=== PATIENT | male | born 1945 | race Caucasian/White ===

== ENCOUNTER → 2020-06-16 09:27 | Outpatient (BNVA) | payer MEDICARE, SELFPAY | PROVIDERS: PCP Internal Medicine; Referring Provider Internal Medicine; Visit Provider Urology | DX: N40.1 Benign prostatic hyperplasia with lower urinary tract symptoms (principal); N13.8 Other obstructive and reflux uropathy; Z87.442 Personal history of urinary calculi | CPT/HCPCS: Q3014 ==

== ENCOUNTER → 2020-12-06 10:54 | Outpatient (BNVA) | payer MEDICARE, SELFPAY | PROVIDERS: Visit Provider Urology | DX: N40.1 Benign prostatic hyperplasia with lower urinary tract symptoms (principal); N13.8 Other obstructive and reflux uropathy; N20.0 Calculus of kidney | CPT/HCPCS: 51798; 99212 ==

== ENCOUNTER → 2021-06-16 09:31 | Outpatient (BNVA) | payer MEDICARE, SELFPAY | PROVIDERS: PCP Internal Medicine; Visit Provider Urology ==

== ENCOUNTER → 2022-06-15 14:23 | Outpatient (BNVA) | payer MEDICARE, SELFPAY | PROVIDERS: PCP Internal Medicine; Visit Provider Urology | DX: N20.0 Calculus of kidney (principal) | CPT/HCPCS: Q3014 ==

== ENCOUNTER → 2022-10-04 13:01 | Outpatient (BNVA) | payer MEDICARE, BC, SELFPAY | PROVIDERS: PCP Internal Medicine; Visit Provider Nurse Practitioner Family | DX: N40.1 Benign prostatic hyperplasia with lower urinary tract symptoms (principal); N13.8 Other obstructive and reflux uropathy; R35.0 Frequency of micturition; N20.0 Calculus of kidney; R33.9 Retention of urine, unspecified; Z79.82 Long term (current) use of aspirin | CPT/HCPCS: 51798; 99212 ==

== ENCOUNTER → 2022-11-21 10:09 | Outpatient (BNVA) | payer MEDICARE, BC, SELFPAY | PROVIDERS: PCP Internal Medicine; Visit Provider Nurse Practitioner Family | DX: N40.1 Benign prostatic hyperplasia with lower urinary tract symptoms (principal); N13.8 Other obstructive and reflux uropathy; N20.0 Calculus of kidney; R97.20 Elevated prostate specific antigen [PSA] | CPT/HCPCS: 99212 ==

== ENCOUNTER → 2023-06-11 11:46 | Outpatient (BNVA) | payer MEDICARE, BC, SELFPAY | PROVIDERS: PCP Internal Medicine; Visit Provider Nurse Practitioner Family | DX: R97.20 Elevated prostate specific antigen [PSA] (principal); N20.0 Calculus of kidney | CPT/HCPCS: 51798; 81003; 99212 ==

== ENCOUNTER 2023-06-11 12:03 | Outpatient (AMB) | payer MEDICARE, BC, SELFPAY ==
--- NOTE | 2023-06-11 11:56 | A.OFFVIS_ITS ---
Intake Intake Visit Reasons: 6m/PSA/US Intake Note: Patient is present for follow up PSA/Ultrasound (psa 1.5) (imaging 05/31/23) Urology Medications: finasteride (pt stopped x1 week ago) Blood Thinner: aspirin PVR: 80ml's Line Runner Required: No Accompanied by: Self / Same As Patient Allergies No Known Allergies Allergy (Verified 06/11/23 22:05) Medication List - Last Reconciled 06/11/23 by MICHAEL Corona- allopurinol 100 mg PO DAILY aspirin (Adult Low Dose Aspirin) 81 mg PO DAILY blood sugar diagnostic As directed cholecalciferol (vitamin D3) 50 mcg PO DAILY clindamycin phosphate 1% 1 appl topical BID coenzyme Q10 100 mg PO DAILY diphth,pertus(acell),tetanus mL IM finasteride 5 mg PO DAILY 90 days vac 2019 [id number](PF) 60 mcg (15 mcg x 4)/0.5 mL 0.5 mL IM DIRECTED fluoride (sodium) 1.1% dental BID-TID glipizide ER 5 mg PO BID hydrochlorothiazide 25 mg PO DAILY hydrocortisone 2.5% appl topical DAILY indomethacin 50 mg PO TID lancets As directed levothyroxine 125 mcg PO DAILY losartan 50 mg PO DAILY metformin ER 500 mg PO BEDTIME miconazole nitrate 2% topical nystatin-triamcinolone 100,000-0.1 unit/g-% appl topical rosuvastatin 5 mg PO DAILY sodium hyaluronate (viscosup) (Gelsyn-3) mg intra-articular tretinoin 0.05% 1 appl topical BEDTIME triamcinolone acetonide 0.1% appl topical urea 20% appl topical varicella-zoster [id number] (PF) 50 mcg/0.5 mL 0.5 mL IM DIRECTED HPI HPI Comments History of Present Illness Details Matias is a pleasant 77-year-old male patient of .? He presents to the office today for follow-up of his nephrolithiasis and benign prostatic hyperplasia. In discussion with the patient today reports to be doing and feeling well. Recent PSA results reviewed with the patient today as noted karen robertson. Recent renal ultrasound results reviewed with the patient today. Right kidney unremarkable. Left kidney with a 1.2 x 0.9 x 1.1 and echo thin walled cyst. No hydronephrosis noted bilaterally. When asked patient reports compliance with finasteride 5 mg daily. 10/18-- PSA total-- 4.2 PSA % free-- 31 06/20--PSA 1.7 Patient had previously trialed terazosin however experienced dizziness and the medication was discontinued. When asked patient does report previous urinary symptoms of urinary frequency and urgency as well as nocturia up to 3 times per night significantly improved. Discussed obtaining PSA in 6 months for surveillance monitoring and for further assessment evaluation with daily finasteride. When asked patient denies incontinence, hematuria, dysuria, foul smelling urine, changes to urinary stream, flank pain, fever, and or chills. In office urinalysis with glucosuria otherwise within normal limits. [facility] Medical History Thyroid disease Hearing loss Hypothyroidism HTN (hypertension) Hyperlipidemia Prostate nodule Surgical History History of surgery Review of Systems Const All systems reviewed & are unremarkable except as noted in HPI and below Reports no additional complaints Eyes Reports no additional complaints ENT Reports no additional complaints Card Reports no additional complaints Resp Reports no additional complaints GI Reports no additional complaints Reports as per HPI Musc Reports no additional complaints Neuro Reports no additional complaints Psych Reports no additional complaints Endo Reports as per HPI Yefri/Lymph Reports no additional complaints Aller/Immun Reports no additional complaints Physical Exam Const General: cooperative, healthy appearing, comfortable, no acute distress, well developed, alert and awake Orientation/consciousness: patient oriented x3 Limitations: no limitations HEENT Head: Yes normal to inspection, Yes normocephalic and Yes atraumatic Ears: hearing grossly normal bilaterally Eyes General: appearance normal, both eyes and all related structures Neck Neck: Yes normal visual inspection and Yes trachea midline Chest Chest palpation & inspection: normal inspection of the chest Resp Effort & Inspection: normal respiratory effort and able to speak in complete sentences Cardio Rate: regular rate GI Inspection: Yes normal to inspection General: Yes no CVA tenderness Back/Spine/Pelvis Back: no CVA tenderness Skin General skin exam: no rashes or lesions noted Neuro General: patient oriented x3 Extrem General: Yes normal to inspection Psych Appearance: grossly normal and well kempt Mental Status: mental status grossly normal Speech and movement: Normal speech and movement present and Clear speech present Affect: normal affect Attitude: cooperative Thought process: Normal thought process present Thought content: Normal thought content present Insight: Good insight present (Psych) Judgement: Good judgement present (Psych) Office Procedures Post Void Residual Post Residual Void Post Void Residual (PVR): 80 [id number]-[id number] Void Residual by ultrasound Results AMB Urinalysis, Automated UA Leukoctes 0 Jordan/uL Last Edit by [employer] on 06/11/23 12:17 UA Nitrite Negative Last Edit by [employer] on 06/11/23 12:17 UA Urobilinogen 0.2 mg/dL Last Edit by [employer] on 06/11/23 12:17 UA Protein 0 mg/dL Last Edit by [employer] on 06/11/23 12:17 UA pH 6.0 Last Edit by [employer] on 06/11/23 12:17 UA Blood 0 Roman/uL Last Edit by [employer] on 06/11/23 12:17 UA Specific [place] 1.015 Last Edit by [employer] on 06/11/23 12:17 UA Ketone Negative Last Edit by [employer] on 06/11/23 12:17 UA Bilirubin 0 mg/dL Last Edit by [employer] on 06/11/23 12:17 UA Glucose 0 mg/dL Last Edit by [employer] on 06/11/23 12:17 Results Reviewed Results Reviewed: Laboratory Last Values Urine pH (Auto) 6.0 06/11/23 12:16 Specific [place] (Auto) 1.015 06/11/23 12:16 Urine Protein (Auto) 0 mg/dL 06/11/23 12:16 Glucose (UA)(Auto) 0 mg/dL 06/11/23 12:16 Urine Ketones (Auto) Negative 06/11/23 12:16 Urine Blood (Auto) 0 Roman/uL 06/11/23 12:16 Urine Nitrite (Auto) Negative 06/11/23 12:16 Urine Bilirubin (Auto) 0 mg/dL 06/11/23 12:16 Urine Urobilinogen (Auto) 0.2 mg/dL 06/11/23 12:16 Leukocyte Esterase (Auto) 0 Jordan/uL 06/11/23 12:16 Assessment & Plan Assessment & Plan (1) Elevated PSA: Code(s): R97.20 - Elevated prostate specific antigen [PSA] (2) Nephrolithiasis: Code(s): N20.0 - Calculus of kidney Plan In office urinalysis results reviewed with the patient today; as noted above. Recent PSA results reviewed with the patient today; as noted above. Recent renal imaging results reviewed with the patient today; as noted above. Patient denies any bothersome urinary issues or concerns at this time. Patient reports to be happy with current voiding parameters. Continue finasteride 5 mg as discussed and prescribed. Will obtain PSA in 6 months. Follow-up in 6 months with lab to be completed prior; or sooner with any issues, concerns, and or questions. Orders: Orders Prostate Specific Antigen 6 Months R97.20 - Elevated prostate specific antigen [PSA] AMB Urinalysis Automated Today Z13.9 - Encounter for screening, unspecified AMB Post Void Residual by ultrasound Today N13.8 - Other obstructive and reflux uropathy, N40.1 - Benign prostatic hyperplasia with lower urinary tract symptoms Patient Instructions: The patient had an opportunity to ask questions regarding the treatment plan. All questions were answered. Physical exam, labs, and imaging were discussed and reviewed in detail. As well as risks, benefits, and discussion of treatment choices. No major barriers to understanding were identified. The patient expressed understanding and agreement with the above treatment plan. The patient was made aware they should contact our office by phone for worsening of their current condition, the appearance of new symptoms, or with any questions or concerns. Compliance is encouraged with any medications and follow up testing that is ordered. It is a privilege to be allowed the opportunity to participate in? your urological care.? Again, if you have any questions or concerns If you have any questions or concerns please do not hesitate to contact me. The office is [phone]. This note is constructed using voice recognition software. While every effort has been made to ensure accuracy brewery representative errors may have been included. Yours sincerely, DARLENE Corona Coding Level of Care Code Est Pt Level 3 (64143) Diagnoses Elevated PSA R97.20 Nephrolithiasis N20.0 CPT Codes Post Residual Void - PVR CPT Code: 94459-Gfdt Void Residual by ultrasound ([id number])
== END 2023-06-11 14:40 | disposition home or self-care (01) ==
PROVIDERS: PCP Internal Medicine; Visit Provider Nurse Practitioner Family
DX: R97.20 Elevated prostate specific antigen [PSA] (principal); N20.0 Calculus of kidney
CPT/HCPCS: 99213

== ENCOUNTER 2023-12-10 10:32 | Outpatient (AMB) | payer MEDICARE, BC, SELFPAY ==
--- NOTE | 2023-12-10 10:34 | MHC.OFFVIS ---
Intake Visit Reasons: 6 month f/u- PSA Intake Note: Patient is present for follow up PSA PSA: 1.2 Urology Medications: finasteride Blood Thinner: aspirin Strategic Alliances Manager Required: No Accompanied by: Self / Same As Patient Allergies No Known Allergies Allergy (Verified 12/10/23 11:09) Medication List - Last Reconciled 12/10/23 by Fransisca Mckeon [employer]LOOR AUTOMATION MANAGER- allopurinol 100 mg PO DAILY aspirin (Adult Low Dose Aspirin) 81 mg PO DAILY blood sugar diagnostic As directed cholecalciferol (vitamin D3) 50 mcg PO DAILY clindamycin phosphate 1% 1 appl topical BID coenzyme Q10 100 mg PO DAILY diphth,pertus(acell),tetanus mL IM finasteride 5 mg PO DAILY 90 days flu vac 2020 [id number](PF) 60 mcg (15 mcg x 4)/0.5 mL 0.5 mL IM DIRECTED fluoride (sodium) 1.1% dental BID-TID glipizide ER 5 mg PO BID hydrochlorothiazide 25 mg PO DAILY hydrocortisone 2.5% appl topical DAILY indomethacin 50 mg PO TID lancets As directed levothyroxine 125 mcg PO DAILY losartan 50 mg PO DAILY metformin ER 500 mg PO BEDTIME miconazole nitrate 2% topical nystatin-triamcinolone 100,000-0.1 unit/g-% appl topical rosuvastatin 5 mg PO DAILY sodium hyaluronate (viscosup) (Gelsyn-3) mg intra-articular tretinoin 0.05% 1 appl topical BEDTIME triamcinolone acetonide 0.1% appl topical urea 20% appl topical varicella-zoster [id number] (PF) 50 mcg/0.5 mL 0.5 mL IM DIRECTED HPI Comments Details: Matias is a pleasant 78-year-old male patient of .? He has a past medical history of hearing loss, hypertension, hyperlipidemia, and hypothyroidism. He presents to the office today for follow-up of his nephrolithiasis and benign prostatic hyperplasia. In discussion with the patient today reports to be doing and feeling well. He discusses his recent travel to [place] as he has his second home there. Recent PSA results reviewed with the patient today as noted below. 10/18 PSA total-- 4.2 PSA % free 31%, 06/20 PSA 1.7, 11/19 1.2 He currently denies any bothersome urinary issues or concerns. He reports compliance with finasteride 3 times per week as prescribed. He discusses noting a change in his bowel habits as he has been recently experiencing being softer stools however denies nausea, vomiting, and or diarrhea. He thinks this might be related to his change in fluids to mineral water as well as possible glipizide. He otherwise denies urinary urgency, urinary frequency, incontinence, nocturia, hematuria, dysuria, foul smelling urine, changes to urinary stream, flank pain, fever, and or chills. He is happy with his current voiding parameters. In office urinalysis results reviewed with the patient today. Previous workup has included renal ultrasound noting right kidney unremarkable. Left kidney with a 1.2 x 0.9 x 1.1 and echo thin walled cyst. No hydronephrosis noted bilaterally. He otherwise offers no other issues or concerns at this time. [facility] Medical History Thyroid disease Hearing loss Hypothyroidism HTN (hypertension) Hyperlipidemia Prostate nodule Surgical History History of surgery Review of Systems Const Reports no additional complaints Eyes Reports no additional complaints ENT Reports as per HPI Card Reports as per HPI Resp Reports no additional complaints GI Reports as per HPI Reports as per HPI Musc Reports no additional complaints Neuro Reports no additional complaints Psych Reports no additional complaints Endo Reports no additional complaints Yefri/Lymph Reports no additional complaints Aller/Immun Reports no additional complaints Physical Exam Const General: cooperative, healthy appearing, comfortable, no acute distress, well developed, alert and awake Orientation/consciousness: patient oriented x3 Limitations: no limitations HEENT Head: Yes normal to inspection, Yes normocephalic and Yes atraumatic Ears: hearing grossly normal bilaterally Eyes General: appearance normal, both eyes and all related structures Neck Neck: Yes normal visual inspection and Yes trachea midline Chest Chest palpation & inspection: normal inspection of the chest Resp Effort & Inspection: normal respiratory effort and able to speak in complete sentences Cardio Rate: regular rate GI Inspection: Yes normal to inspection General: Yes no CVA tenderness Back/Spine/Pelvis Back: no CVA tenderness Skin General skin exam: no rashes or lesions noted Neuro General: patient oriented x3 Extrem General: Yes normal to inspection Psych Appearance: grossly normal and well kempt Mental Status: mental status grossly normal Speech and movement: Normal speech and movement present and Clear speech present Affect: normal affect Attitude: cooperative Thought process: Normal thought process present Thought content: Normal thought content present Insight: Good insight present (Psych) Judgement: Good judgement present (Psych) Results AMB Urinalysis, Automated UA Leukoctes 0 Jordan/uL Last Edit by [employer] on 12/10/23 10:55 UA Nitrite Negative Last Edit by [employer] on 12/10/23 10:55 UA Urobilinogen 0.2 mg/dL Last Edit by [employer] on 12/10/23 10:55 UA Protein 15 mg/dL Last Edit by [employer] on 12/10/23 10:55 UA pH 5.5 Last Edit by [employer] on 12/10/23 10:55 UA Blood 0 Roman/uL Last Edit by [employer] on 12/10/23 10:55 UA Specific [place] 1.025 Last Edit by [employer] on 12/10/23 10:55 UA Ketone Negative Last Edit by [employer] on 12/10/23 10:55 UA Bilirubin 0 mg/dL Last Edit by [employer] on 12/10/23 10:55 UA Glucose 0 mg/dL Last Edit by [employer] on 12/10/23 10:55 Results Reviewed Results Reviewed: Laboratory Last Values Urine pH (Auto) 5.5 12/10/23 10:46 Specific [place] (Auto) 1.025 12/10/23 10:46 Urine Protein (Auto) 15 mg/dL 12/10/23 10:46 Glucose (UA)(Auto) 0 mg/dL 12/10/23 10:46 Urine Ketones (Auto) Negative 12/10/23 10:46 Urine Blood (Auto) 0 Roman/uL 12/10/23 10:46 Urine Nitrite (Auto) Negative 12/10/23 10:46 Urine Bilirubin (Auto) 0 mg/dL 12/10/23 10:46 Urine Urobilinogen (Auto) 0.2 mg/dL 12/10/23 10:46 Leukocyte Esterase (Auto) 0 Jordan/uL 12/10/23 10:46 Assessment & Plan Assessment & Plan (1) Elevated PSA: Code(s): R97.20 - Elevated prostate specific antigen [PSA] Category: Medical (2) BPH w urinary obs/LUTS: Code(s): N40.1 - Benign prostatic hyperplasia with lower urinary tract symptoms; N13.8 - Other obstructive and reflux uropathy Category: Medical (3) Nephrolithiasis: Code(s): N20.0 - Calculus of kidney Category: Medical (4) Renal cyst: Code(s): N28.1 - Cyst of kidney, acquired Category: Medical Plan In office urinalysis results reviewed with the patient today; as noted above. Recent PSA results reviewed with the patient today; as noted above. Patient currently denies any bothersome urinary issues or concerns. He is happy with his current voiding parameters. Continue finasteride 5 mg 3 times per week as discussed and prescribed. Will obtain renal ultrasound in 1 year for surveillance monitoring of nephrolithiasis and renal cyst Will obtain PSA in 1 year. Follow-up in 1 year with lab to be completed prior; or sooner with any issues, concerns, and or questions. Orders: Orders US renal BI 1 Year N20.0 - Calculus of kidney AMB Urinalysis Automated Today Z13.9 - Encounter for screening, unspecified Prostate Specific Antigen 1 Year R97.20 - Elevated prostate specific antigen [PSA] Patient Instructions: The patient had an opportunity to ask questions regarding the treatment plan. All questions were answered. Physical exam, labs, and imaging were discussed and reviewed in detail. As well as risks, benefits, and discussion of treatment choices. No major barriers to understanding were identified. The patient expressed understanding and agreement with the above treatment plan. The patient was made aware they should contact our office by phone for worsening of their current condition, the appearance of new symptoms, or with any questions or concerns. Compliance is encouraged with any medications and follow up testing that is ordered. It is a privilege to be allowed the opportunity to participate in? your urological care.? Again, if you have any questions or concerns If you have any questions or concerns please do not hesitate to contact me. The office is [phone]. This note is constructed using voice recognition software. While every effort has been made to ensure accuracy health and safety consultant errors may have been included. Yours sincerely, DARLENE Corona Coding Level of Care Code Est Pt Level 3 (03820) Diagnoses Elevated PSA R97.20 BPH w urinary obs/LUTS N40.1; N13.8 Nephrolithiasis N20.0 Renal cyst N28.1
== END 2023-12-10 11:10 | disposition home or self-care (01) ==
PROVIDERS: PCP Internal Medicine; Visit Provider Nurse Practitioner Family
DX: R97.20 Elevated prostate specific antigen [PSA] (principal); N40.1 Benign prostatic hyperplasia with lower urinary tract symptoms; N13.8 Other obstructive and reflux uropathy; N20.0 Calculus of kidney; N28.1 Cyst of kidney, acquired; Z13.9 Encounter for screening, unspecified
CPT/HCPCS: 99213

== ENCOUNTER → 2023-12-10 10:32 | Outpatient (BNVA) | payer MEDICARE, BC, SELFPAY | PROVIDERS: PCP Internal Medicine; Visit Provider Nurse Practitioner Family | DX: R97.20 Elevated prostate specific antigen [PSA] (principal); N40.1 Benign prostatic hyperplasia with lower urinary tract symptoms; N13.8 Other obstructive and reflux uropathy; N20.0 Calculus of kidney; N28.1 Cyst of kidney, acquired; Z79.899 Other long term (current) drug therapy | CPT/HCPCS: 81003; 99212 ==

== ENCOUNTER 2024-11-26 09:33 | Outpatient (AMB) | payer MEDICARE, BC, SELFPAY ==
--- NOTE | 2024-11-26 09:37 | A.OFFVIS_ITS ---
Intake Visit Reasons: 1y/PSA/PVR(set) Intake Note: Patient presents today for follow up on: BPH, nephrolithiasis, renal cyst, elevated psa, ultrasound and lab results Imaging Completed:10/27/24 PSA: 1.09 Urology Medications: finasteride Blood Thinner: aspirin PVR: 0ml's Legal Support Analyst Required: No Accompanied by: Self / Same As Patient Allergies No Known Allergies Allergy (Verified 11/26/24 10:19) Medication List - Last Reconciled 11/26/24 by MICHAEL Corona- allopurinol 100 mg PO DAILY aspirin (Adult Low Dose Aspirin) 81 mg PO DAILY blood sugar diagnostic As directed cholecalciferol (vitamin D3) 50 mcg PO DAILY clindamycin phosphate 1% 1 appl topical BID coenzyme Q10 100 mg PO DAILY diphth,pertus(acell),tetanus mL IM finasteride 5 mg PO DAILY 90 days flu vac 2020 [id number](PF) 60 mcg (15 mcg x 4)/0.5 mL 0.5 mL IM DIRECTED fluoride (sodium) 1.1% dental BID-TID glipizide ER 5 mg PO BID hydrochlorothiazide 25 mg PO DAILY hydrocortisone 2.5% appl topical DAILY indomethacin 50 mg PO TID lancets As directed levothyroxine 125 mcg PO DAILY losartan 50 mg PO DAILY metformin ER 500 mg PO BEDTIME miconazole nitrate 2% topical nystatin-triamcinolone 100,000-0.1 unit/g-% appl topical rosuvastatin 5 mg PO DAILY sodium hyaluronate (viscosup) (Gelsyn-3) mg intra-articular tretinoin 0.05% 1 appl topical BEDTIME triamcinolone acetonide 0.1% appl topical urea 20% appl topical varicella-zoster [id number] (PF) 50 mcg/0.5 mL 0.5 mL IM DIRECTED HPI Comments Details: Matias is a pleasant 79-year-old male patient of .? He has a past medical history of hearing loss, hypertension, hyperlipidemia, and hypothyroidism. He presents to the office today for follow-up of his nephrolithiasis, renal cyst, and benign prostatic hyperplasia. In discussion with the patient today reports to be doing and feeling well. He denies having had any bothersome urinary issues or concerns since his last office visit here approximately 1 year ago. He reports compliance with finasteride 3 times per week. He discusses his upcoming surgical intervention for his left knee replacement with provider through [facility]. Recent PSA results reviewed with the patient today as noted below. 10/18 PSA total 4.2 PSA % free 31%, 06/20 PSA 1.7, 11/19 1.2, 10/20 1.1 Recent renal imaging results reviewed with the patient today 11/20 bilateral kidneys are normal in size and echotexture. No hydronephrosis, solid masses, or calculi seen bilaterally. 1.8 cm cyst in the mid pole of the left kidney. He currently denies any bothersome urinary issues or concerns. He denies urinary urgency, urinary frequency, incontinence, nocturia, hematuria, dysuria, foul smelling urine, changes to urinary stream, flank pain, fever, and or chills. He is happy with his current voiding parameters. In office urinalysis results reviewed with the patient today. He otherwise offers no other issues or concerns at this time. [facility] Medical History Thyroid disease Hearing loss Hypothyroidism HTN (hypertension) Hyperlipidemia Prostate nodule Surgical History History of surgery Review of Systems Const Reports no additional complaints Eyes Reports no additional complaints ENT Reports as per HPI Card Reports as per HPI Resp Reports no additional complaints GI Reports as per HPI Reports as per HPI Musc Reports no additional complaints Neuro Reports no additional complaints Psych Reports no additional complaints Endo Reports no additional complaints Yefri/Lymph Reports no additional complaints Aller/Immun Reports no additional complaints Physical Exam Const General: cooperative, healthy appearing, comfortable, no acute distress, well developed, alert and awake Orientation/consciousness: patient oriented x3 Limitations: no limitations HEENT Head: Yes normal to inspection, Yes normocephalic and Yes atraumatic Ears: hearing grossly normal bilaterally Eyes General: appearance normal, both eyes and all related structures Neck Neck: Yes normal visual inspection and Yes trachea midline Chest Chest palpation & inspection: normal inspection of the chest Resp Effort & Inspection: normal respiratory effort and able to speak in complete sentences Cardio Rate: regular rate GI Inspection: Yes normal to inspection General: Yes no CVA tenderness Back/Spine/Pelvis Back: no CVA tenderness Skin General skin exam: no rashes or lesions noted Neuro General: patient oriented x3 Extrem General: Yes normal to inspection Psych Appearance: grossly normal and well kempt Mental Status: mental status grossly normal Speech and movement: Normal speech and movement present and Clear speech present Affect: normal affect Attitude: cooperative Thought process: Normal thought process present Thought content: Normal thought content present Insight: Good insight present (Psych) Judgement: Good judgement present (Psych) Office Procedures Post Void Residual Post Residual Void Post Void Residual (PVR): 0 [id number] Void Residual by ultrasound Results AMB Urinalysis, Automated UA Leukoctes 0 Jordan/uL Last Edit by [employer] on 11/26/24 09:53 UA Nitrite Last Edit by [employer] on 11/26/24 09:53 UA Urobilinogen 0.2 mg/dL Last Edit by [employer] on 11/26/24 09:53 UA Protein 0 mg/dL Last Edit by [employer] on 11/26/24 09:53 UA pH 5.5 Last Edit by [employer] on 11/26/24 09:53 UA Blood 0 Roman/uL Last Edit by [employer] on 11/26/24 09:53 UA Specific [place] 1.025 Last Edit by [employer] on 11/26/24 09:53 UA Ketone Last Edit by [employer] on 11/26/24 09:53 UA Bilirubin 1 mg/dL Last Edit by [employer] on 11/26/24 09:53 UA Glucose 0 mg/dL Last Edit by [employer] on 11/26/24 09:53 Results Reviewed Results Reviewed: Laboratory Last Values Urine pH (Auto) 5.5 11/26/24 09:45 Specific [place] (Auto) 1.025 11/26/24 09:45 Urine Protein (Auto) 0 mg/dL 11/26/24 09:45 Glucose (UA)(Auto) 0 mg/dL 11/26/24 09:45 Urine Blood (Auto) 0 Roman/uL 11/26/24 09:45 Urine Bilirubin (Auto) 1 mg/dL 11/26/24 09:45 Urine Urobilinogen (Auto) 0.2 mg/dL 11/26/24 09:45 Leukocyte Esterase (Auto) 0 Jordan/uL 11/26/24 09:45 Assessment & Plan Assessment & Plan (1) Renal cyst: Code(s): N28.1 - Cyst of kidney, acquired Category: Medical (2) Elevated PSA: Code(s): R97.20 - Elevated prostate specific antigen [PSA] Category: Medical (3) BPH w urinary obs/LUTS: Code(s): N40.1 - Benign prostatic hyperplasia with lower urinary tract symptoms; N13.8 - Other obstructive and reflux uropathy Category: Medical (4) Nephrolithiasis: Code(s): N20.0 - Calculus of kidney Category: Medical Plan In office urinalysis results reviewed with the patient today; as noted above. PVR 0 mL. Recent PSA results reviewed with the patient today; as noted above. Recent renal imaging results reviewed with the patient today; as noted above. He currently denies any bothersome urinary issues or concerns. He reports be happy with current voiding parameters. Will continue with surveillance monitoring of nephrolithiasis, renal cysts, and PSA. Will obtain renal ultrasound in 1 year. Will obtain PSA in 1 year. Continue finasteride as prescribed. Follow-up in 1 year with PSA, imaging, and PVR; or sooner with any issues, concerns, and or questions. Orders: Orders AMB Post Void Residual by ultrasound Today N13.8 - Other obstructive and reflux uropathy, N40.1 - Benign prostatic hyperplasia with lower urinary tract symptoms Prostate Specific Antigen 1 Year N13.8 - Other obstructive and reflux uropathy, N40.1 - Benign prostatic hyperplasia with lower urinary tract symptoms, R97.20 - Elevated prostate specific antigen [PSA] US renal BI 1 Year N28.1 - Cyst of kidney, acquired AMB Urinalysis Automated Today Z13.9 - Encounter for screening, unspecified Medications: Refilled finasteride 5 mg PO DAILY 90 days 90 tabs 4RF N13.8 - Other obstructive and reflux uropathy, N40.1 - Benign prostatic hyperplasia with lower urinary tract symptoms, R33.9 - Retention of urine, unspecified Coding Level of Care Code Est Pt Level 3 (40415) Complex EM visit Add On G2211 Diagnoses Renal cyst N28.1 Elevated PSA R97.20 BPH w urinary obs/LUTS N40.1; N13.8 Nephrolithiasis N20.0 CPT Codes Post Residual Void - PVR CPT Code: 23520-Imhz Void Residual by ultrasound ([id number])
--- OUTSIDE RECORDS SUMMARY | 2024-11-26 10:28 | XMS_ITS | Clinical Summary ---
Author Organization 175 [facility] Address [address] [place] [address] Phone Care Team Providers Care Credit Products Officer Name Role Phone Nereyda Persaud Primary Care Provider + Allergies No known active allergies Medications glipiZIDE (GLUCOTROL XL) 5 mg 24 hr tablet TAKE 1 TABLET BY MOUTH TWICE DAILY WITH MEALS 180 tablet 1 4 Active losartan (COZAAR) 50 mg tablet TAKE 1 TABLET BY MOUTH DAILY 90 tablet 1 4 Active finasteride (PROSCAR) 5 mg tablet Take 1 tablet (5 mg total) by mouth 3 (three) times a week. Do not crush, chew, or split. Active aspirin 81 mg EC tablet Take 1 tablet (81 mg total) by mouth 1 (one) time each day. Active coenzyme Q-10 50 mg capsule Take 4 capsules (200 mg total) by mouth 3 (three) times a week. Active cholecalciferol (VITAMIN D-3) 50 mcg (2,000 unit) tablet Take 1 tablet (2,000 Units total) by mouth 1 (one) time each day. Active allopurinoL (ZYLOPRIM) 100 mg tablet TAKE 2 TABLETS BY MOUTH DAILY 180 tablet 1 5 Active levothyroxine (SYNTHROID, LEVOTHROID) 125 mcg tablet TAKE 1 TABLET BY MOUTH DAILY 90 tablet 1 5 Active albuterol HFA (ProAir HFA) 90 mcg/actuation inhalerIndicatio ns:Acute bronchitis, unspecified organism Inhale 2 puffs by mouth every 4 (four) hours if needed for wheezing or shortness of breath. 8.5 g 5 08/20/19 26 Active indomethacin (INDOCIN) 50 mg capsule TAKE 1 CAPSULE BY MOUTH THREE TIMES DAILY WITH FOOD NEEDED 90 capsule 1 5 Active rosuvastatin (CRESTOR) 5 mg tablet TAKE 1 TABLET BY MOUTH DAILY 90 tablet 1 5 Active hydroCHLOROthiaz suzi (HYDRODIURIL) 25 mg tablet Take 1 tablet (25 mg total) by mouth 1 (one) time each day. 90 tablet 3 5 Active Active Problems Problem Noted Date Diagnosed Date Primary osteoarthritis of left knee 09/24/2024 Primary osteoarthritis of right knee 09/24/2024 BPH (benign prostatic hyperplasia) 09/24/2024 Gout 12/20/2020 GERD (gastroesophageal reflux disease) 8 Hypothyroidism 04/25/2018 Hyperlipidemia 04/22/2018 Diabetes mellitus type 2, un complicated ([facility] V24, [facility] V28) 04/14/2018 Hypertension 09/03/2017 Nephrolithiasis 03/23/2016 Fatty liver 07/27/2015 Overview (09/24/2024): Comments: Diagnosed by ultrasound november 2010. saw Dr Lopez, asked to lose weight Encounters Date Type Department Care Team Description 11/18/2024 11:00 AM EDT Consult Orthopedic Surgery [facility] [address] [phone] Cesilia Qureshi NP Primary osteoarthritis of left knee (Primary Dx); Pre-op evaluation 11/18/2024 Telephone Orthopedic Surgery [facility] [address] [phone] Wanda Hendrix, YULY PT Initial Eval 11/06/2024 3:30 PM EDT Consult Internal Medicine [facility] 175 [facility] [address] [place] [phone] Nereyda Persaud PA Preop examination (Primary Dx) 11/02/2024 Telephone Orthopedic Surgery [facility] [address] [phone] Wanda Hendrix RN PREOP REVIEW 10/27/2024 1:08 PM EDT - 10/27/2024 11:59 PM EDT Hospital Encounter [facility] - [facility] [address] [place] [phone] Calculus of kidney Discharge Disposition: Home or Self Care 10/27/2024 11:00 AM EDT Office Visit Internal Medicine [facility] 175 [facility] [address] [place] [phone] Nereyda Persaud PA Type 2 diabetes mellitus without complication, without long-term current use of insulin ([facility] V24, [facility] V28) (Primary Dx); Primary hypertension; Pure hypercholesterolemia; Hypothyroidism, unspecified type; Chronic gout of multiple sites, unspecified cause; Benign prostatic hyperplasia, unspecified whether lower urinary tract symptoms present; Obesity (BMI 30.0-34.9); Arthritis of knee 09/30/2024 Telephone Orthopedic Surgery [place] [address] [phone] Annamaria Johnson MA Surgery 09/24/2024 2:30 PM EST Office Visit Orthopedic Surgery [facility] [address] [place] [phone] Nemesio Cuevas MD Primary osteoarthritis of left knee (Primary Dx); Primary osteoarthritis of right knee; Primary osteoarthritis of left knee from Last 3 Months Surgical History Surgery Date Site/Laterality Comments COLONOSCOPY PROCEDURE: HISTORICAL COLONOSCOPY; COMMENT: x 3 OTHER SURGICAL HISTORY PROCEDURE: IN CURTG/CAUT ANAL FISSURE W/DILAT SPHNCTR SPX 1ST; COMMENT: fissurectomy OTHER SURGICAL HISTORY PROCEDURE: HISTORICAL CLEFT LIP/PALATE REPAIR; COMMENT: hx cleft palate OTHER SURGICAL HISTORY PROCEDURE: IN COLECTOMY PRTL W/COLOST/ILEOST & MUCOFISTULA; COMMENT: partial colectomy UPPER GASTROINTESTINAL ENDOSCOPY PROCEDURE: IN UPPER GI ENDOSCOPY PERFORMED Medical History Medical History Date Comments Diabetes mellitus type 2, uncomplicated ([facility] V24, [facility] V28) 04/14/2018 DX:Diabetes mellitus type 2, uncomplicated (HCC) Fatty liver 07/27/2015 DX:Fatty liver; COMMENT: Comments: Diagnosed by ultrasound november 2010. saw Dr Lopez, asked to lose weight GERD (gastroesophageal reflu x disease) 04/25/2018 DX:GERD (gastroesophageal re flux disease) Hyperlipidemia 04/22/2018 DX:Hyperlipidemi a Hypertension 09/03/2017 DX:Hypertension Hypothyroidism 04/25/2018 DX:Hypothyroidis m Nephrolithiasis 03/23/2016 DX:Nephrolithias is Arthritis of carpometacarpal (CMC) joint of right thumb DX:Arthritis of carpometacar pal (CMC) joint of right thumb History of COVID-19 08/02/2020 DX:History o f COVID-19; COMMENT: 08/02/20 and 06/2021 Gout DX:Gout Obesity (BMI 30.0-34.9) DX:Obesi ty (BMI 30.0-34.9) Cleft palate OA (osteoarthritis) Family History Medical History Relation Name Comments COPD Father Dementia Mother Relation Name Status Comments Father (Age 84) Mother (Age 84) Social History Tobacco Use Types Packs/Day Years Used Date Smoking Tobacco: Former Cigarettes Q uit: 07/29/1988 Smokeless Tobacco: Never Alcohol Use Standard Drinks/Week Comments No 0 (1 standard drink = 0.6 oz pur e alcohol) Housing Instability Answer Date Recorde d Are you worried that in the next 2 months you may not have stable housing? No 10/20/2024 Food Access & Nutrition Answer Date Rec orded Do you have access to a vari ety of food including fruits and vegetables? Yes 10/20/2024 Access to Healthcare Answer Date Record ed Within the last 3 months, ho w many times did you visit the emergency department for your medical care? 0 10/20/2024 Health Literacy Answer Date Recorded How often do you need to hav e someone help you when you read instructions, pamphlets, or other written material from your doctor or pharmacy? Never 10/20/2024 Caregiver: How often do you need to have someone help you when you read instructions, pamphlets, or other written material from your doctor or pharmacy? Not on file 10/20/2024 Financial Risk Answer Date Recorded How hard is it for you to pa y for the very basics like food, housing, medical care, and air conditioning / heating? Not very hard 10/20/2024 Transportation Answer Date Recorded Has the lack of transportati on kept you from meetings, work, or from getting things needed for daily living? No Has the lack of transportati on kept you from medical appointments or from getting medications? No 10/20/2024 Social Isolation Answer Date Recorded How often do you feel lonely or isolated from th ose around you? Never 10/20/2024 Food Risk Answer Date Recorded Within the past 12 months we worried whether our food would run out before we got money to buy more. Never true 10/20/2024 Within the past 12 months th e food we bought just didn't last and we didn't have money to get more. Never true 10/20/2024 Dependent Care Answer Date Recorded Do you need help finding or paying for care for your loved ones. For example, child attendant or elderly care for an older adult? No 10/20/2024 Education Answer Date Recorded Do you think completing more education or training, like finishing a GED, going to college, or learning a trade, would be helpful for you? No 10/20/2024 Employment and Income Answer Date Recor ded During the last four weeks, have you been actively looking for work? Yes 10/20/2024 Living Situation Answer Date Recorded What is your living situation? 0 10/20/2024 Sex and Gender Information Value Date Recorded Sex Assigned at Not on file Legal Sex Male 12:45 PM EST Gender Identity Not on file Sexual Orientation Not on file Obstetrics History Last Filed Vital Signs Vital Sign Reading Time Taken Comments Blood Pressure 138/84 11/18/2024 10:43 AM EDT Pulse 86 11/18/2024 10:43 AM EDT Temperature 36.4 ??C (97.5 ??F) 11/18/2024 10:43 AM E DT Respiratory Rate - - Oxygen Saturation 96% 11/18/2024 10:43 AM EDT Inhaled Oxygen Concentration - - Weight 95.3 kg (210 lb) 11/18/2024 10:43 AM EDT Height 175.3 cm (5' 9 ) 11/18/2024 10:43 AM EDT Body Mass Index 31.01 11/18/2024 10:43 AM EDT Plan of Treatment Upcoming Encounters Date Type Department Care Team (Latest Contact Info) Description 12/01/2024 10:00 AM EDT Hospital Encounter [facility] Main OR [address] [place] [phone] Nemesio Cuevas MD [address] [address] 12/01/2024 10:00 AM EDT - 12/01/2024 12:30 PM EDT Surgery [facility] Main OR [address] [place] [phone] Nemesio Cuevas MD [address] [address] LEFT TOTAL KNEE ARTHROPLASTY [46470 (CPT??)] 12/16/2024 1:30 PM EDT Office Visit Orthopedic Surgery - [place] [address] [phone] Nemesio Cuevas MD [address] [address] 05/12/2025 11:00 AM EDT Office Visit Internal Medicine - [address] [phone] Nereyda Persaud PA [address] [phone] Scheduled Procedures Name Priority Associated Diagnoses Date/Ti me ARTHROPLASTY KNEE TOTAL Primary osteoarthritis of left knee 12/01/2024 10:00 AM EDT Health Maintenance Due Date Last Done Comments Diabetes: Annual Foot Exam 1957 Diabetes: Annual Retina Eye Exam 1955 Zoster Vaccines (2 of 2) 05/27/2020 04/01/2020, 12/28 Hepatitis C Screening 07/07/2022 Medicare Annual Wellness Visit 07/07/2022 Diabetes: Annual Urine Albumin-Creatinine Ratio (uACR) 07/08/2022 DTaP,Tdap,and Td Vaccines (2 - Td or Tdap) 10/14/2022 10/14/2012 COVID-19 Vaccine ( season) 2024 04/19/2022, 11/28/2021, 05/26/2021, Additional history exists Influenza Vaccine (Season Ended) 2025 06/17/2023, 05/02/2022, 04/28/2021, Additional history exists Diabetes: Blood Sugar Control Test (HGBA1C) 05/19/2025 11/17/2024, 04/17/2024 Depression Screening 10/20/2025 10/20/2024 Social Influencers of Health Screening 10/20/2025 10/20/2024 Falls Risk Assessment 10/27/2025 10/27/2024 Diabetes: Annual GFR (Glomerular Filtration Rate) 11/17/2025 11/17/2024, 04/17/2024 Hypertension/CHF/CAD Annual BMP Blood Test 11/17/2025 11/17/2024, 04/17/2024 Cholesterol Screening (Lipid Panel) 11/17/2029 11/17/2024, 04/17/2024 Pneumococcal Vaccine: 50+ Years Completed 03/11/2015, 06/30/2012 RSV Immunization Adult Patients Completed 05/27/2024 HIB Vaccines Aged Out No longer eligi ble based on patient's age to complete this topic HPV Vaccines Aged Out No longer eligi ble based on patient's age to complete this topic Hepatitis A Vaccines Aged Out No long er eligible based on patient's age to complete this topic Hepatitis B Vaccines Aged Out No long er eligible based on patient's age to complete this topic IPV Vaccines Aged Out No longer eligi ble based on patient's age to complete this topic MMR Vaccines Aged Out No longer eligi ble based on patient's age to complete this topic Meningococcal ACWY Vaccine Aged Out N o longer eligible based on patient's age to complete this topic Meningococcal B Vaccine Aged Out No l onger eligible based on patient's age to complete this topic RSV Immunization Patients Under 20 months Aged Out No longer eligible based on patient's age to complete this topic Varicella Vaccines Aged Out No longer eligible based on patient's age to complete this topic Procedures Procedure Name Priority Date/Time Associated Diagnosis Comments MRSA PCR Routine 11/18/2024 12:12 PM EDT Primary osteoarthritis of left knee Pre-op evaluation CBC WITH AUTO DIFFERENTIAL Routine 11/17/2024 11:42 AM EDT Type 2 diabetes mellitus without complication, without long-term current use of insulin ([facility] V24, [facility] V28) COMPREHENSIVE METABOLIC PANEL Routine 11/17/2024 11:42 AM EDT Type 2 diabetes mellitus without complication, without long-term current use of insulin ([facility] V24, [facility] V28) Primary hypertension Pure hypercholesterolemia CBC AND DIFFERENTIAL Routine 11/17/2024 11:42 AM EDT Type 2 diabetes mellitus without complication, without long-term current use of insulin ([facility] V24, [facility] V28) LIPID PANEL WITH REFLEX TO DIRECT LDL Routine 11/17/2024 11:42 AM EDT Pure hypercholesterolemia HEMOGLOBIN A1C Routine 11/17/2024 11:42 AM EDT Type 2 diabetes mellitus without complication, without long-term current use of insulin ([facility] V24, [facility] V28) THYROID STIMULATING HORMONE Routine 11/17/2024 11:42 AM EDT Hypothyroidism, unspecified type URIC ACID Routine 11/17/2024 11:42 AM EDT Chronic gout of multiple sites, unspecified cause ECG INTERPRETATION AND REPORT ONLY Routine 11/06/2024 4:21 PM EDT Preop examination US RETROPERITONEAL LIMITED Routine 10/27/2024 1:42 PM EDT Calculus of kidney PROSTATE SPECIFIC ANTIGEN SCREEN Routine 10/12/2024 12:01 PM EDT Elevated prostate specific antigen (PSA) from Last 3 Months Results * MRSA molecular study (11/18/2024 12:12 PM EDT) MRSA Screen PCR Not Detected Not Detected LAB MICROBIOLOGY METHOD 11/18/2024 8:13 PM EDT [facility] Swab Both anterior nares / Unknown Non-blood Collection / Unknown 11/18/2024 12:12 PM EDT 11/18/2024 12:12 PM EDT us Cesilia Qureshi NP LAB MICROBIOLOGY - GENE RAL ORDERABLES Final Result Performing Organization Address City/[facility]/ZIP Co de Phone Number [facility] [address] [place] [address], [place] [phone] * Lipid panel with reflex to direct LDL (11/17/2024 11:42 AM EDT) Cholesterol 177 0 - 200 mg/dL LAB CHEMISTRY METHOD 11/17/2024 3:50 PM EDT [facility] Triglycerides 146 0 - 150 mg/dL LAB CHEMISTRY METHOD 11/17/2024 3:50 PM EDT [facility] HDL 49 >=40 mg/dL LAB CHEMISTRY METHOD 11/17/2024 3:50 PM EDT [facility] LDL Calculated 99 0 - 100 mg/dL LAB CHEMISTRY METHOD 11/17/2024 3:50 PM EDT [facility] VLDL Cholesterol Dexter 29.2 mg/dL LAB CHEMISTRY METHOD 11/17/2024 3:50 PM EDT [facility] Non HDL Chol. (LDL+VLDL) 128 <145 mg/dL LAB CHEMISTRY METHOD 11/17/2024 3:50 PM EDT [facility] Chol/HDL Ratio 3.6 0.0 - 4.4 LAB CHEMISTRY METHOD 11/17/2024 3:50 PM EDT [facility] Blood Venous blood specimen / Unknown Venipuncture / Unknown 11/17/2024 11:42 AM EDT 11/17/2024 11:42 AM EDT us Nereyda FREIRE LAB BLOOD ORDERABLES Fin al Result [facility] [address] [place] [address], * (ABNORMAL) CBC auto differential (11/17/2024 11:42 AM EDT) [facility] Signature WBC 9.9 4.8 - 10.8 K/mcL LAB HEMETOLOGY METHOD 11/17/2024 3:02 PM EDT [facility] RBC 5.10 4.50 - 5.50 M/mcL LAB HEMETOLOGY METHOD 11/17/2024 3:02 PM EDT [facility] Hemoglobin 15.6 13.5 - 17.5 g/dL LAB HEMETOLOGY METHOD 11/17/2024 3:02 PM EDT [facility] Hematocrit 45.6 42.0 - 54.0 % LAB HEMETOLOGY [facility] MCV 89.8 79.0 - 98.0 FL LAB HEMETOLOGY METHOD [facility]/17[facility]2024 [facility] MCH 30.7 27.0 - 32.0 pcg LAB HEMETOLOGY METHOD 11/17[facility]24 [facility] MCHC 34.2 32.0 - 37.0 g/dL LAB HEMETOLOGY METHOD 11/17/2024 3:02 PM EDT [facility] RDW 13.3 11.0 - 15.0 % LAB HEMETOLOGY METHOD 11/17[facility]2024 [facility] Platelets 220 130 - 400 K/mcL LAB HEMETOLOGY METHOD 11/17/2024 [facility] MPV 11.9(H) 7.0 - 11.0 FL LAB HEMETOLOGY METHOD [facility]/17[facility]2024 [facility] NRBC 0.0 <1.0 % LAB HEMETOLOGY METHOD 11/17/2024 3:02 PM [facility] NRBC Absolute 0.00 <0.10 K/mcL LAB HEMETOLOGY METHOD 11/17/2024 3:02 PM [facility] Neutrophils Relative 71.9 % LAB HEMETOLOGY METHOD 11/17/2024 3:02 PM [facility] Lymphocytes Relative 13.8 % LAB HEMETOLOGY METHOD 11/17/2024 3:02 PM [facility] Monocytes Relative 8.0 % LAB HEMETOLOGY METHOD 11/17/2024 3:02 PM [facility] Eosinophils Relative 4.1 % LAB HEMETOLOGY METHOD 11/17/2024 3:02 PM [facility] Basophils Relative 1.3 % LAB HEMETOLOGY METHOD 11/17/2024 3:02 PM [facility] Immature Granulocytes Relative 0.9 % LAB HEMETOLOGY METHOD 11/17/2024 3:02 PM [facility] Neutrophils Absolute 7.13(H) 1.50 - 7.00 K/mcL LAB HEMETOLOGY METHOD 11/17/2024 3:02 PM [facility] Lymphocytes Absolute 1.37 1.00 - 5.00 K/mcL LAB HEMETOLOGY METHOD 11/17/2024 3:02 PM [facility] Monocytes Absolute 0.79 0.20 - 1.00 K/mcL LAB HEMETOLOGY METHOD 11/17/2024 3:02 PM [facility] Eosinophils Absolute 0.41 0.00 - 0.50 K/mcL LAB HEMETOLOGY METHOD 11/17/2024 3:02 PM [facility] Basophils Absolute 0.13 0.00 - 0.20 K/mcL LAB HEMETOLOGY METHOD 11/17/2024 3:02 PM [facility] Immature Granulocytes Absolute 0.09(H) 0.00 - 0.03 K/mcL LAB HEMETOLOGY METHOD 11/17/2024 3:02 PM EDT [facility] Blood Venous blood specimen / Unknown Venipuncture / Unknown 11/17/2024 11:42 AM EDT 11/17/2024 11:42 AM EDT Nereyda FREIRE LAB BLOOD ORDERABLES Fin al Result Performing Organization Address [facility] Co de Phone Number [facility] [address] [place] [address], [place] [phone] * Uric acid (11/17/2024 11:42 AM EDT) Uric Acid 7.3 3.7 - 9.2 mg/dL LAB CHEMISTRY METHOD 11/17/2024 3:50 PM EDT [facility] Blood Venous blood specimen / Unknown Venipuncture / Unknown 11/17/2024 11:42 AM EDT 11/17/2024 11:42 AM EDT us Nereyda FREIRE LAB BLOOD ORDERABLES Fin al Result Performing Organization Address [facility] Co de Phone Number [facility] [address] [place] [address], [place] [phone] * Thyroid stimulating hormone (11/17/2024 11:42 AM EDT) TSH 0.98 0.40 - 4.00 mcIU/mL LAB CHEMISTRY METHOD 11/17/2024 5:08 PM EDT [facility] Blood Venous blood specimen / Unknown Venipuncture / Unknown 11/17/2024 11:42 AM EDT 11/17/2024 11:42 AM EDT us Nereyda FREIRE LAB BLOOD ORDERABLES Fin al Result Performing Organization Address [facility]/ZIP Co de Phone Number [facility] [address] [place] [address], * (ABNORMAL) Hemoglobin A1c (11/17/2024 11:42 AM EDT) Hemoglobin A1C 7.6(H) <6.5 % LAB CHEMISTRY METHOD 11/17/2024 10:41 PM EDT [facility] Mean Bld Glu Estim. 171 mg/dL LAB CHEMISTRY METHOD 11/17/2024 10:41 PM EDT [facility] Blood Venous blood specimen / Unknown Venipuncture / Unknown 11/17/2024 11:42 AM EDT 11/17/2024 11:42 AM EDT Nereyda FREIRE LAB BLOOD ORDERABLES Fin al Result Performing Organization Address [facility]/ZIP Co de Phone Number [facility] [address] [place] [address], [place] [phone] * (ABNORMAL) Comprehensive metabolic panel (11/17/2024 11:42 AM EDT) [facility] Sodium 140 133 - 145 mmol/L LAB CHEMISTRY METHOD 11/17/2024 3:50 PM EDT [facility] Potassium 4.3 3.5 - 5.5 mmol/L LAB CHEMISTRY METHOD 11/17/2024 3:50 PM EDT [facility] Chloride 103 96 - 110 mmol/L LAB CHEMISTRY METHOD 11/17/2024 3:50 PM EDT [facility] CO2 28 21 - 32 mmol/L LAB CHEMISTRY METHOD 11/17/2024 3:50 PM EDT [facility] Anion Gap 9 3 - 11 LAB CHEMISTRY METHOD 11/17/2024 3:50 PM EDT [facility] Glucose 153(H) 70 - 100 mg/dL LAB CHEMISTRY METHOD 11/17/2024 3:50 PM [facility] BUN 18 5 - 25 mg/dL LAB CHEMISTRY METHOD 11/17/2024 3:50 PM [facility] Creatinine 0.88 0.70 - 1.30 mg/dL LAB CHEMISTRY METHOD 11/17/2024 3:50 PM [facility] eGFR 89 >=60 mL/min/1. 73m2 LAB CHEMISTRY METHOD 11/17/2024 3:50 PM [facility] Comment:Calculation based on the??Chronic Kidney Disease Epidemiology Collaboration (CKD-EPI) equation refit??without adjustment for race. BUN/Creatinine Ratio 20.5 LAB CHEMISTRY METHOD 11/17/2024 3:50 PM [facility] Calcium 9.5 8.5 - 10.5 mg/dL LAB CHEMISTRY METHOD 11/17/2024 3:50 PM [facility] AST (SGOT) 22 10 - 42 unit/L LAB CHEMISTRY METHOD 11/17/2024 3:50 PM [facility] ALT (SGPT) 30 10 - 60 unit/L LAB CHEMISTRY METHOD 11/17/2024 3:50 PM [facility] Alkaline Phosphatase 60 42 - 121 unit/L LAB CHEMISTRY METHOD 11/17/2024 3:50 PM [facility] Total Protein 6.8 6.0 - 8.0 g/dL LAB CHEMISTRY METHOD 11/17/2024 3:50 PM [facility] Albumin 4.0 3.2 - 5.0 g/dL LAB CHEMISTRY METHOD 11/17/2024 3:50 PM [facility] Total Bilirubin 0.9 0.0 - 1.4 mg/dL LAB CHEMISTRY METHOD 11/17/2024 3:50 PM [facility] Blood Venous blood specimen / Unknown Venipuncture / Unknown 11/17/2024 11:42 AM EDT 11/17/2024 11:42 AM EDT us Nereyda FREIRE LAB BLOOD ORDERABLES Fin al Result [facility] [address] [place] [address], [place] [phone] * ECG Interpretation and Report Only (11/06/2024 4:21 PM EDT) Narrative Nereyda Persaud PA - 11/06/2024 4:21 PM EDT Sinus rhythm no ST changes us Nreeyda FREIRE ECG ORDERABLES Final Re sult * US Retroperitoneal Limited (10/27/2024 1:42 PM EDT) Anatomical Region Laterality Modality Body Ultrasound 10/27/2024 1:51 PM EDT Impressions 10/27/2024 1:53 PM EDT Left renal cyst. Otherwise, unremarkable exam. -------- FINAL REPORT -------- Dictated By: Alida Grey Dictated Date: 10/27/2024 13:51 ET Assigned Physician: Alida Grey Reviewed and Electronically Signed By: Alida Grey Signed Date: 10/27/2024 13:53 ET Workstation ID: [id number] Transcribed By: Self Edit Transcribed Date: 10/27/2024 13:51 ET Narrative 10/27/2024 1:53 PM EDT US RETROPERITONEAL LIMITED HISTORY: ??History of stones. Prior study: None. FINDINGS: ??The right kidney measures 13.9 cm in length. The left kidney measures 12.9 cm in length. ??Both kidneys demonstrate normal echotexture. ??No hydronephrosis, solid masses, calculi, or perinephric collections are seen. 1.8 x 1.1 x 1.5 cm cyst midpole left kidney. The bladder is is not examined. Procedure Note Alida Grey MD - 10/27/2024 US RETROPERITONEAL LIMITED HISTORY: History of stones. Prior study: None. FINDINGS: The right kidney measures 13.9 cm in length. The left kidneymeasures 12.9 cm in length. Both kidneys demonstrate normal echotexture.No hydronephrosis, solid masses, calculi, or perinephric collections areseen. 1.8 x 1.1 x 1.5 cm cyst midpole left kidney. The bladder is is not examined. IMPRESSION: Left renal cyst. Otherwise, unremarkable exam. -------- FINAL REPORT -------- Dictated By: Alida Grey Dictated Date: 10/27/2024 13:51 ET Assigned Physician: Alida Grey Reviewed and Electronically Signed By: Alida Grey Signed Date: 10/27/2024 13:53 ET Workstation ID: [id number] Transcribed By: Self Edit Transcribed Date: 10/27/2024 13:51 ET Fransisca Mckeon [facility] IMG US PROCEDURES Final Res ult * Prostate specific antigen screen (10/12/2024 12:01 PM EDT) PSA 1.09 0.00 - 4.00 ng/mL LAB CHEMISTRY METHOD 10/12/2024 2:20 PM EDT [facility] Blood Venous blood specimen / Unknown Venipuncture / Unknown 10/12/2024 12:01 PM EDT 10/12/2024 12:01 PM EDT Narrative [facility] - 10/12/2024 2:20 PM EDT The Siemens Advia Centaur Chemiluminescent Immunoassay is used. Results obtained with different assay methods or kits cannot be used interchangeably. Results cannot be interpreted as absolute evidence of the presence or absence of malignant disease. Fransisca Mckeon [facility] BLOOD ORDERABLES Final Result [facility] [address] [place] [address], from Last 3 Months Insurance MEDICARE [facility] Advance Directives Documents on File Type Date Recorded Patient Systems Planner Expl anation Power of Rn Ccu 11/19/2024 3:54 PM [facility] Care Teams Credit Products Officer Relationship Specialty Start Date End Date Nereyda Persaud PA [address] [facility] [address] [place] [address] PCP - General Internal Medicine 02/16/20
--- OUTSIDE RECORDS SUMMARY | 2024-11-26 10:28 | XMS_ITS ---
Author Name [facility] Organization Unknown Care Team Organization Name Specialty Phone Email Start Date End [facility] 11/20/2023 [facility] 11/20/2023
== END 2024-11-26 10:24 | disposition home or self-care (01) ==
LOC: HO.HUSH 09:34
PROVIDERS: PCP Internal Medicine; Visit Provider Nurse Practitioner Family
DX: N28.1 Cyst of kidney, acquired (principal); R97.20 Elevated prostate specific antigen [PSA]; N40.1 Benign prostatic hyperplasia with lower urinary tract symptoms; N13.8 Other obstructive and reflux uropathy; N20.0 Calculus of kidney; Z13.9 Encounter for screening, unspecified
CPT/HCPCS: 99213; G2211

== ENCOUNTER → 2024-11-26 09:33 | Outpatient (BNVA) | payer MEDICARE, BC, SELFPAY | PROVIDERS: PCP Internal Medicine; Visit Provider Nurse Practitioner Family | DX: N40.1 Benign prostatic hyperplasia with lower urinary tract symptoms (principal); N28.1 Cyst of kidney, acquired; N13.8 Other obstructive and reflux uropathy; N20.0 Calculus of kidney; R97.20 Elevated prostate specific antigen [PSA] | CPT/HCPCS: 51798; 81003; 99212 ==